=== PATIENT | male | born 1970 | race Caucasian/White ===

== ENCOUNTER 2021-02-27 09:10 | Emergency (ER) | payer OTHER ==
[~2021-02-27] VITALS: Ht 182.9 cm; Wt 108.4 kg
[2021-02-27 11:42] VITALS: BP 123/85
== END 2021-02-27 11:43 | disposition home or self-care (01) ==
LOC: M.ERS 09:10
DX: S90.32XA Contusion of left foot, initial encounter (principal); Z90.89 Acquired absence of other organs; Z90.49 Acquired absence of other specified parts of digestive tract; W19.XXXA Unspecified fall, initial encounter; Y93.89 Activity, other specified; Y92.89 Other specified places as the place of occurrence of the external cause; Y99.8 Other external cause status